=== PATIENT | female | born 1990 | race Caucasian/White ===

== ENCOUNTER → 2020-12-28 11:33 | Outpatient (BNVA) | payer OTHER, SELFPAY | PROVIDERS: Visit Provider Nurse Practitioner | DX: M25.512 Pain in left shoulder (principal) | CPT/HCPCS: 73030 ==

== ENCOUNTER 2021-01-11 14:26 | Outpatient (CLI) | payer OTHER, SELFPAY ==
--- NOTE | 2021-01-11 16:45 | MR_ITS ---
WS: [id number] MRI LEFT SHOULDER NONCONTRAST TECHNIQUE: Sagittal T2, coronal T1, T2 and proton density imaging. Axial gradient PDE imaging. CLINICAL INFORMATION: S46.912D - Strain of unspecified muscle, fascia and tendo... COMPARISON: None. 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 Mild downsloping of the acromion. Slight imping ement on the distal supraspinatus. Supraspinatus is intact. Normal infraspinatus. Normal teres minor. Normal subscapularis. Normal bone marrow signal in the glenoid and humerus. Normal biceps labral anchor. Normal biceps tendon in the bicipital groove. Glenoid labrum appears liz ssly normal. Tiny amount of T2 signal abnormality in the intra-articular biceps tendon suspicious for small intrasubstance tear near the rotator interval. Otherwise normal intra-articular biceps tendon. MR/MR shoulder LT wo con* [id number] IMPRESSION: 1. 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 Mild downsloping acro mion with slight impingement on the distal supraspinatus. 2. Rotator cuff is normal in appearance. No acute rotator cuff tears. 3. Normal biceps tendon in the bicipital groove. 4. Tiny amount of T2 signal abnormality in the intra-articular biceps tendon s uspicious for small intrasubstance tear 5. Glenoid labrum appears grossly normal.
== END 2021-01-11 14:27 | disposition home or self-care (01) ==
LOC: RADSHAW 14:29
PROVIDERS: PCP Family Medicine; Visit Provider Orthopaedic Surgery
DX: S46.912D Strain of unspecified muscle, fascia and tendon at shoulder and upper arm level, left arm, subsequent encounter (principal); M19.012 Primary osteoarthritis, left shoulder; X58.XXXD Exposure to other specified factors, subsequent encounter
CPT/HCPCS: 73221

== ENCOUNTER → 2021-02-04 11:28 | Outpatient (BNVA) | payer SELFPAY | PROVIDERS: PCP Family Medicine; Visit Provider Nurse Practitioner Family | DX: Z01.812 Encounter for preprocedural laboratory examination (principal); Z20.822 Contact with and (suspected) exposure to COVID-19 | CPT/HCPCS: 87635 ==

== ENCOUNTER 2024-12-22 08:41 | Emergency (ER) | payer OTHER, SELFPAY ==
[2024-12-22 08:50] VITALS: BP 174/80; PULSE 89; RESP 16; TEMP 36.8; O2SAT 98; BMI 41.1
--- NOTE | 2024-12-22 09:02 | ED_ITS ---
HPI - Abdominal Pain 2 General: Chief Complaint: Abdominal Pain Stated Complaint: rt abd pain Time Seen by Provider: 12/22/24 08:47 History of Present Illness: 34-year-old female presents to the emerg ency room with right lower quadrant abdominal pain. States that hurts when she moves or when she walks. She has been very nauseous with it. Began around 2 AM this morning and has progressively worsened. She has previously had a cholecystectomy and had a hernia repair. She has not had any dysuria urgency or frequency no hematuria no fever sweats or chills. Associated Symptoms: Denies chills, dysuria and fever(s) Related Data Previous Rx's ?Medication ?Instructions ?Recorded hydrocodone 5 mg-acetaminophen 325 1 tab PO Q6H PRN pa in #5 tabs 12/22/24 mg tablet promethazine 25 mg tablet 25 mg PO Q6H PRN nausea and 12/22/24 vomiting #20 tabs Allergies Allergy/AdvReac Type Severity Reaction Status Date / Time aspirin (From [employer] Aspirin) Allergy swelling Verified 04/02/21 09:16 ibuprofen Allergy ALGY-Swell Verified 04/02/21 09:16 Lip/Tongue/Throat Review of Systems 2 Const: Denies: fever(s) or chills Card: Denies: chest pain Resp: Denies: dyspnea GI: Denies: abdominal pain : Denies: dysuria, urinary frequency or urinary urgency Musc: Denies: neck pain or back pain Skin/Breast: Denies: rash PFSH ED 2 PFSH: Social History Smoking and tobacco/nicotine status: never used tobacco/nicotine Physical Exam 2 Const: GENERAL APPEARANCE: cooperative ORIENTATION/CONSCIOUSNESS: Yes awake, Yes oriented to person, Yes oriented to place and Yes oriented to time HENMT: COMMON NORMALS: normocephalic, atraumatic and hearing grossly normal bilaterally HEAD & SCALP: normocephalic and atraumatic Resp: COMMON NORMALS: normal respiratory effort, No retractions, No use of accessory muscles and clear to auscultation bilaterally AUSCULTATION: clear to auscultation bilaterally Cardio: COMMON NORMALS: regular rate, regular rhythm and No murmurs present (Cardio) RATE: regular rate RHYTHM: regular rhythm GI: COMMON NORMALS: Soft to palpation and No hepatosplenomegaly present A USCULTATION: Yes normoactive bowel sounds PALPATION: Yes Soft to palpation, No Tenderness to palpation present (GI), No Guarding due to palpation present (GI) and Yes No hepatosplenomegaly present Extremity: COMMON NORMALS: normal to inspection, capillary refill normal, no clubbing, cyanosis or edema, no calf tenderness and no pedal edema Neuro: SENSORIUM/ORIENTATION: Yes oriented to person, Yes oriented to place and Yes oriented to time Skin: COMMON NORMALS: no rashes or lesions noted GENERAL SKIN EXAM: no rashes or lesions noted Course 2 Vital Signs: Vital signs: Vital Signs Temperature 98.3 F 12/22/24 08:50 Pulse Rate 78 12/22/24 10:49 Respiratory Rate 16 12/22/24 08:50 Blood Pressure 133/89 12/22/24 10:49 Pulse Oximetry 98 12/22/24 10:49 Oxygen Delivery Me thod Room Air 12/22/24 08:50 MDM - Abdominal Pain Medical Decision Making Labs and imaging reviewed. No leukocytosis liver functions renal functions electrolytes all normal. Urine does not show any signs of cystitis. Reviewed findings with the patient CT also does not show any acute process. Patient may be having biliary colic although the nature of her pain is not highly suggestive that at this time. Discharged home with hydrocodone to use every 6 hours as needed for pain promethazine as needed Glucodex 24 to 48 hours advance as tolerated Medical Records I reviewed the patient's medical records. Lab Data I reviewed the patient's lab results. 12/22/24 09:00 12/22/24 09:00 Labs/Radiology: Radiology Impressions Abdomen/Pelvis CT 12/22/24 09:02 IMPRESSION: No evidence of acute abdominal or pelvic process. Laboratory Results WBC 11.28 10^3/uL (3.29-11.43) 12/22/24 09:00 RBC 4.94 10^6/uL (3.85-5.65) 12/22/24 09:00 Hgb 14.80 g/dL (11.27-16.99) 12/22/24 09:00 Hct 43.5 % (36-47) 12/22/24 09:00 MCV 88.1 fl (85-98) 12/22/24 09:00 MCH 30.0 pg (27-33) 12/22/24 09:00 MCHC 34.0 g/dL (30-55) 12/22/24 09:00 RDW 12.9 % (12.1-15.1) 12/22/24 09:00 Plt Count 320 10^3/cmm (157-399) 12/22/24 09:00 MPV 9.3 fL (7.4-10.4) 12/22/24 09:00 Neut % (Auto) 70.9 % 12/22/24 09:00 Lymph % (Auto) 21.5 % 12/22/24 09:00 [place] % (Auto) 4.0 % 12/22/24 09:00 Eos % (Auto) 2.8 % 12/22/24 09:00 Baso % (Auto) 0.4 % 12/22/24 09:00 Neut # (Auto) 8.00 10^3/uL (1.8-7.7) H 12/22/24 09:00 Lymph # (Auto) 2.4 10^3/uL (0.8-4.8) 12/22/24 09:00 [place] # (Auto) 0.5 10^3/uL (0.2-0.9) 12/22/24 09:00 Eos # (Auto) 0.3 10^3/uL (0.0-0.8) 12/22/24 09:00 Baso # (Auto) 0.0 10^3/uL (0.0-0.1) 12/22/24 09:00 Nucleated RBC % (auto) 0 % 12/22/24 09:00 Nucleated RBCs # 0.0 /100WBC 12/22/24 09:00 Sodium 139 mmol/L (136-145) 12/22/24 09:00 Potassium 3.7 mmol/L (3.5-5.1) 12/22/24 09:00 Chloride 101 mmol/L (98-107) 12/22/24 09:00 Carbon Dioxide 24 mmol/L (22-29) 12/22/24 09:00 Anion Gap 17.7 (5-19) 12/22/24 09:00 BUN 6 mg/dL (6-20) 12/22/24 09:00 Creatinine 0.6 mg/dL (0.5-0.9) 12/22/24 09: GFR Calculation 115.1 mL/min (90-130) 12/22/24 09: Glucose 115 mg/dL (65-115) 12/22/24 09: Calculated Osmolality 287 mOsm/kg (285-295) 12/22/24 09:00 Calcium 9.1 mg/dL (8.5-10.5) 12/22/24 09:00 Total Bilirubin 0.8 mg/dL (0.15-1.2) 12/22/24 09:00 AST 14 U/L (0-32) 12/22/24 09: ALT 16 U/L (0-33) 12/22/24 09: Alkaline Phosphatase 77 U/L (35-105) 12/22/24 09: Total Protein 7.3 g/dL (6.6-8.7) 12/22/24 09: Albumin 4.3 g/dL (3.5-5.2) 12/22/24 09: Globulin 3.0 g/dL (1.3-4.6) 12/22/24 09: Lipase 24 U/L (13-60) 12/22/24 09:00 HCG, Qual Negative (Negative) 12/22/24 09: Urine Color Yellow (Yellow) 12/22/24: Urine Appearance Cloudy (CLEAR) A 12/22/24: Urine pH 7.0 (5-7) 12/22/24 09:05 Ur Specific [place] 1.017 (1.005-1.030) 12/22/24: Urine Protein Negative (Negative) 12/22/24 09: Urine Glucose (UA) Negative (Normal) 12/22/24 09: Urine Ketones Negative (Negative) 12/22/24 09: Urine Blood Trace (Negative) A 12/22/24: Urine Nitrate Negative (Negative) 12/22/24 09: Urine Bilirubin Negative (Negative) 12/22/24 09: Urine Urobilinogen 1.0 mg/dL (Negative) 12/22/24 09:05 Ur Leukocyte Esterase Negative (Negative) 12/22/24: Urine RBC 0-4 /hpf (0-2) H 12/22/24 09:05 Urine WBC 0-4 /hpf (0-5) H 12/22/24 09:05 Ur Squamous Epith Cells 15-25 /hpf (0-5) H 12/22/24 09:05 Amorphous Sediment Not Reportable 12/22/24 09:05 Urine Bacteria 1+ /hpf (NONE) H 12/22/24 09:05 Urine Mucus 1+ /hpf 12/22/24 09:05 All radiology interpretation(s) finalized by discharge Discharge Plan Discharge Patient Disposition: Home Clinical Impression: Abdominal pain Condition: Stable Prescriptions: New hydrocodone-acetaminophen 5-325 mg tablet 1 tab PO Q6H PRN (Reason: pain) Qty: 5 0RF promethazine 25 mg tablet 25 mg PO Q6H PRN (Reason: nausea and vomiting) Qty: 20 0RF Discharge Orders: Discharge ED (Routine); Ordered 12/22/24 Ordered By: Chuck Soliman Referrals: Soraida Conrad MD [Primary Care Provider, Family Practice] Discharge Diet: Clear Liquid Discharge Activity: Increase activity as tolerated Patient Instructions: Abdominal Pain (ED), Opioid Safety, Pain Management, Patient Portal & Kan Instructions Activity Restrictions/Additional Instructions: Thank you for choosing [facility] for your healthcare needs today. It is very important that you follow up as instructed or that you return to the Emergency Department should you have concerns or if your condition changes or worsens in any way. Emergency department visits are focused on emergent conditions, in some cases you may require further evaluation on an outpatient basis. You were seen in the emergency room with abdominal pain CT was normal your laboratory tests are unremarkable. Recommend clear liquid diet you can use promethazine hydrocodone as needed if symptoms worsen or change return to emergency room (Please note that included in your discharge packet is information concerning opioid safety and pain management. This information is given to all patients were discharged from the ER regardless of their discharge diagnosis or the medicines they usually take or are prescribed.) Stand Alone Forms: Work/School Release Print Language: Arabic Coding Level of Care Code ED Assisted Sales Representative for Pietro Arnold
--- NOTE | 2024-12-22 09:02 | CTR_ITS ---
PROCEDURE INFORMATION: Exam: CT Abdomen And Pelvis Without Contrast Exam date and time: 12/22/2024 9:30 AM Age: 34 years old Clinical indication: Abdominal pain; Prior surgery; Surgery date: 6+ months; Surgery type: Gb, hernia TECHNIQUE: Imaging protocol: Computed tomography of the abdomen and pelvis without contrast. Radiation optimization: All CT scans at this facility use at least one of these dose optimization techniques: automated exposure control; mA and/or kV adjustment per patient size (includes targeted exams where dose is matched to clinical indication); or iterative reconstruction. COMPARISON: No relevant prior studies available. RADIATION DOSE METRICS: Total DLP (mGy-cm): 1110.42 FINDINGS: Liver: Normal. No mass. Gallbladder and biliary ducts: Status post cholecystectomy. No evidence of significant biliary obstruction. Pancreas: Normal. No ductal dilation. Spleen: Normal. No splenomegaly. Adrenal glands: Normal. No mass. Kidneys and ureters: Normal. No hydronephrosis. Stomach and bowel: Unremarkable. No obstruction. No mucosal thickening. Appendix: No evidence of appendicitis. Intraperitoneal space: Unremarkable. No free air. No significant fluid collection. Vasculature: Unremarkable. No abdominal aortic aneurysm. Lymph nodes: Unremarkable. No enlarged lymph nodes. Urinary bladder: Unremarkable as visualized. Reproductive: Unremarkable as visualized. Bones/joints: Unremarkable. No acute fracture. Soft tissues: Postoperative change from left inguinal hernia repair. CT/CT abdomen pelvis con [id number] IMPRESSION: No evidence of acute abdominal or pelvic process.
[2024-12-22 09:03] VITALS: BP 158/97; PULSE 67; O2SAT 98
[2024-12-22 09:07] LABS: Hematocrit 43.5 % (36-47); Hemoglobin 14.80 g/dL (11.27-16.99); Mean Corpuscular HGB Conc 34.0 g/dL (30-55); Mean Corpuscular Hemoglobin 30.0 pg (27-33); Mean Corpuscular Volume 88.1 fl (85-98); Nucleated Red Blood Cells % 0 %; Platelet Count 320 10^3/cmm (157-399); Red Blood Count 4.94 10^6/uL (3.85-5.65); White Blood Count 11.28 10^3/uL (3.29-11.43)
[2024-12-22 09:20] LABS: Glucose Urine UA Negative (Normal); Nitrate Urine Negative (Negative); Specific Gravity, Urine 1.017 (1.005-1.030)
[2024-12-22 09:22] LABS: HCG, Serum Qual Negative (Negative)
[2024-12-22 09:25] LABS: Alanine Aminotransferase 16 U/L (0-33); Albumin Level 4.3 g/dL (3.5-5.2); Alkaline Phosphatase 77 U/L (35-105); Anion Gap 17.7 (5-19); Aspartate Amino Transferase 14 U/L (0-32); Blood Urea Nitrogen 6 mg/dL (6-20); Calcium 9.1 mg/dL (8.5-10.5); Carbon Dioxide 24 mmol/L (22-29); Chloride 101 mmol/L (98-107); Creatinine Clr Calc Pharmacy 160.7727; Globulin 3.0 g/dL (1.3-4.6); Glucose 115 mg/dL (65-115); Lipase 24 U/L (13-60); Osmolality Calculated 287 mOsm/kg (285-295); Potassium 3.7 mmol/L (3.5-5.1); Sodium 139 mmol/L (136-145); Total Protein 7.3 g/dL (6.6-8.7)
[2024-12-22 09:47] LABS: Add Urine Microscopic? YES
[2024-12-22 10:49] VITALS: BP 133/89; PULSE 78; O2SAT 98
== END 2024-12-22 10:59 | disposition home or self-care (01) ==
PROVIDERS: Emergency Provider Family Medicine; PCP Family Medicine
DX: R10.31 Right lower quadrant pain (principal)
CPT/HCPCS: 36415; 74176; 80053; 81001; 83690; 84703; 85025; 99284; J7030